=== PATIENT | female | born 1970 | race Caucasian/White ===

== ENCOUNTER 2021-01-12 20:31 | Emergency (ER) | payer SELFPAY ==
[~2021-01-12] VITALS: Ht 170.2 cm; Wt 79.4 kg
[2021-01-12] MEDS ORDERED: KETOROLAC TROMETHAMINE INJ 60 MG/2 ML VIAL IM ONE ×2 (22:00→22:07)
[2021-01-12] MEDS ORDERED: CYCLOBENZAPRINE 10 MG TABLET PO ONE (22:00)
[2021-01-12 22:01] LABS: BASOPHILS % (AUTO) 0.4 % (0.0-2.0); EOSINOPHILS % (AUTO) 1.5 % (0.0-6.0); HEMATOCRIT 28 % (33-45); HEMOGLOBIN 9.1 g/dL (11.5-14.8); LYMPHOCYTES # (AUTO) 2.1 /CMM (0.8-4.8); LYMPHOCYTES % (AUTO) 29.2 % (20.0-44.0); MEAN CORPUSCULAR HGB CONC 32 g/dl (31.0-36.0); MEAN CORPUSCULAR VOLUME 73 fL (82-100); MONOCYTES # (AUTO) 0.5 /CMM (0.1-1.30); NEUTROPHILS # (AUTO) 4.4 /CMM (1.8-8.9); NEUTROPHILS % (AUTO) 61.9 % (43.0-81.0); PLATELET COUNT (AUTO) 399 /CMM (150-450); RED BLOOD CELL COUNT(AUTO) 3.89 MIL/uL (4.0-5.2); WHITE BLOOD COUNT (AUTO) 7.1 K/uL (4.3-11.0)
--- NOTE | 2021-01-12 22:06 | NUR ---
US TECH AT BED SIDE
[2021-01-12] MEDS ORDERED: CYCLOBENZAPRINE 10 MG TABLET ONE (22:07)
[2021-01-12 22:10] LABS: CALCIUM, SERUM 8.8 mg/dL (8.5-10.1); CREATININE 0.6 mg/dL (0.6-1.3); POTASSIUM 4.7 mmol/L (3.5-5.1)
[2021-01-12] MEDS ORDERED: CYCL5TAB PO (22:44)
[2021-01-12] MEDS ORDERED: IBUP-1955 PO (22:44)
--- NOTE | 2021-01-12 23:16 | NUR ---
Patient discharged to home in stable condition. Written and verbal after care instructions given. Patient verbalizes understanding of instruction. Pt ambulatory with a steady gait
[2021-01-13 00:01] VITALS: BP 139/83
== END 2021-01-13 00:02 | disposition home or self-care (01) ==
LOC: ER 20:31
DX: M79.10 Myalgia, unspecified site (principal); I10 Essential (primary) hypertension; E78.5 Hyperlipidemia, unspecified; Z79.899 Other long term (current) drug therapy
CPT/HCPCS: 36415; 80048; 85025; 93971; 96372; 99284; J1885

== ENCOUNTER 2021-12-19 18:11 | Emergency (ER) | payer OTHER ==
[~2021-12-19] VITALS: Ht 172.7 cm; Wt 77.1 kg
[~2021-12-19 18:11] MED LIST: CYCL5TAB PO; IBUP-1955 PO
--- NOTE | 2021-12-19 18:24 | NUR ---
Note daily in EDM - 12/19/21 at 1848 by RICK BIB SON C/O L SIDED HEADACHE RADIATES TO NECK AND LEFT ARM. TO ER BED 7, HOOKED TO MONITOR, VSS. CHANGED TO HOSP GOWN, WARM BLANKET PROVIDED. AWAITING MD ERAZO
--- NOTE | 2021-12-19 18:25 | NUR ---
BIB SON C/O L SIDED HEADACHE RADIATES TO NECK AND LEFT ARM. TO ER BED 7, HOOKED TO MONITOR, NOTED ELEVATED BLOOD PRESSURE. MADE MD AWARE. CHANGED TO HOSP GOWN, WARM BLANKET PROVIDED. AWAITING MD ERAZO
[2021-12-19] MEDS ORDERED: CLONIDINE HCL 0.1 MG TABLET PO ONE (19:00)
[2021-12-19] MEDS ORDERED: CLONIDINE HCL 0.1 MG TABLET ONE (19:07)
--- NOTE | 2021-12-19 19:09 | NUR ---
CATAPRES PO GIVEN.
[2021-12-19 19:35] LABS: BASOPHILS % (AUTO) 0.5 % (0.0-2.0); EOSINOPHILS % (AUTO) 1.8 % (0.0-6.0); HEMATOCRIT 31 % (33-45); HEMOGLOBIN 9.5 g/dL (11.5-14.8); LYMPHOCYTES # (AUTO) 2.2 K/uL (0.8-4.8); LYMPHOCYTES % (AUTO) 27.1 % (20.0-44.0); MEAN CORPUSCULAR HGB CONC 31 g/dl (31.0-36.0); MEAN CORPUSCULAR VOLUME 67 fL (82-100); MONOCYTES # (AUTO) 0.4 K/uL (0.1-1.30); MONOCYTES % (AUTO) 5.1 % (2.0-12.0); NEUTROPHILS # (AUTO) 5.2 K/uL (1.8-8.9); NEUTROPHILS % (AUTO) 65.5 % (43.0-81.0); PLATELET COUNT (AUTO) 402 K/uL (150-450); RED BLOOD CELL COUNT(AUTO) 4.62 MIL/uL (4.0-5.2)
[2021-12-19 19:46] LABS: CALCIUM, SERUM 9.1 mg/dL (8.5-10.1); CARBON DIOXIDE 25 mmol/L (21-32); CHLORIDE 103 mmol/L (98-107); CREATININE 0.6 mg/dL (0.6-1.3); GLUCOSE 99 mg/dL (74-106); POTASSIUM 3.7 mmol/L (3.5-5.1); SODIUM SERUM 139 mmol/L (136-145); UREA NITROGEN, BLOOD 7 mg/dL (7-18)
[2021-12-19 20:00] LABS: ALANINE AMINOTRANSFERASE 29 U/L (12-78); ALBUMIN 3.9 g/dL (3.4-5.0); ALKALINE PHOSPHATASE 79 U/L (46-116); ASPARTATE AMINOTRANSFERASE 19 U/L (15-37); BILIRUBIN,DIRECT 0.1 mg/dL (0.0-0.2); BILIRUBIN,TOTAL 0.3 mg/dL (0.2-1.0)
--- NOTE | 2021-12-19 20:30 | NUR ---
ROTARY SOIL STABILIZER AT BEDSIDE TO DRAW BLOOD SAMPLES.
[2021-12-19] MEDS ORDERED: IBUPROFEN 600 MG TABLET ONE (20:57)
[2021-12-19] MEDS ORDERED: IBUPROFEN 600 MG TABLET PO ONE (21:00)
--- NOTE | 2021-12-19 21:00 | NUR ---
IBUPROFEN TAB GIVEN FOR PAIN.
[2021-12-19 21:13] LABS: EOSINOPHILS % (MANUAL) 1 % (0-4); LYMPHOCYTES % (MANUAL) 29 % (16-48); MONOCYTES % (MANUAL) 7 % (0-11.0); NEUTROPHILS % (MANUAL) 62 (42-76); REACTIVE LYMPHOCYTES 1 % (0-0)
[2021-12-19] MEDS ORDERED: IBUP-1955 PO (22:13)
[2021-12-19 22:19] VITALS: BP 124/73
--- NOTE | 2021-12-19 22:19 | NUR ---
Patient discharged to home in stable condition. Written and verbal after care instructions given. Patient verbalizes understanding of instruction.
== END 2021-12-19 22:21 | disposition home or self-care (01) ==
LOC: ER 18:20
DX: M79.602 Pain in left arm (principal); R51.9 Headache, unspecified; I10 Essential (primary) hypertension; E78.5 Hyperlipidemia, unspecified; Z79.899 Other long term (current) drug therapy
CPT/HCPCS: 36415; 71045-TC; 80048-TC; 80076-TC; 84484-TC; 85025-TC

== ENCOUNTER 2024-11-28 22:56 | Emergency (ER) | payer MEDICAID, OTHER ==
[~2024-11-28] VITALS: Ht 170.2 cm; Wt 81.6 kg
[2024-11-29] MEDS: ASPIRIN 325 MG TABLET PO ONE (01:04)
[2024-11-29] MEDS ORDERED: IOHEXOL-350 100 ML VIAL IV ONE (01:32)
[2024-11-29 01:33] LABS: BASOPHILS % (AUTO) 0.4 % (0.0-2.0); EOSINOPHILS # (AUTO) 0.2 K/uL (0.0-0.7); EOSINOPHILS % (AUTO) 2.2 % (0.0-6.0); HEMATOCRIT 39 % (33-45); LYMPHOCYTES # (AUTO) 2.5 K/uL (0.8-4.8); LYMPHOCYTES % (AUTO) 30.9 % (20.0-44.0); MEAN CORPUSCULAR HEMOGLOBIN 28 PG (26.0-33.0); MEAN CORPUSCULAR HGB CONC 34 g/dl (31.0-36.0); MEAN CORPUSCULAR VOLUME 82 fL (82-100); MONOCYTES # (AUTO) 0.4 K/uL (0.1-1.30); MONOCYTES % (AUTO) 5.3 % (2.0-12.0); NEUTROPHILS % (AUTO) 61.2 % (43.0-81.0); PLATELET COUNT (AUTO) 363 K/uL (150-450); RED BLOOD CELL COUNT(AUTO) 4.68 MIL/uL (4.0-5.2); RED CELL DISTRIBUTION WIDTH 14.1 % (11.5-15.0); WHITE BLOOD COUNT (AUTO) 8.2 K/uL (4.3-11.0)
[2024-11-29] MEDS ORDERED: IV NS 0.9% 250 ML IV ONE (01:33)
[2024-11-29] MEDS ORDERED: CT SWABBABLE VALVE TRANS SET 1 EA INFUS.SET MC ONE (01:33)
[2024-11-29 01:45] LABS: CALCIUM, SERUM 9.1 mg/dL (8.5-10.1); CARBON DIOXIDE 31 mmol/L (21-32); CHLORIDE 101 mmol/L (98-107); CREATININE 0.6 mg/dL (0.6-1.3); GLUCOSE 120 mg/dL (74-106); POTASSIUM 3.6 mmol/L (3.5-5.1); SODIUM SERUM 139 mmol/L (136-145); UREA NITROGEN, BLOOD 14 mg/dL (7-18)
[2024-11-29 02:00] LABS: NT-PRO BNP 24 pg/mL (0-125)
[2024-11-29 05:50] VITALS: BP 125/82; TEMP 97.8; O2SAT 99
== END 2024-11-29 05:51 | disposition home or self-care (01) ==
LOC: ER 22:57
DX: R07.2 Precordial pain (principal); R06.02 Shortness of breath; R11.0 Nausea; E78.5 Hyperlipidemia, unspecified; I10 Essential (primary) hypertension; Z79.1 Long term (current) use of non-steroidal anti-inflammatories (NSAID)
CPT/HCPCS: 99285; 71275; 71045; 93005; 85025; 80048; 85378; 36415; 84484 ×2; 83880; J7050; Q9967